=== PATIENT | male | born 1960 ===

== ENCOUNTER 2017-12-23 07:42 | Emergency (ER) | payer OTHER ==
[2017-12-23 08:16] VITALS: BP 143/78; PULSE 79; RESP 20; TEMP 98.7; O2SAT 97; BMI 26.4
--- NOTE | 2017-12-23 08:22 | C.PDOC ---
History Of Present Illness 57-year-old male, presents to the emergency department with complaints of left shoulder pain ongoing for the past six days, that he developed after he hit his shoulder on a roof at work. Pain is persistent in nature, worsened with movement. He denies any head injury, loss of consciousness, numbness/weakness, or any other associated symptoms. No other complaints at this time. Time Seen by Provider: 12/23/17 07:49 Chief Complaint (Nursing): Upper Extremity Problem/Injury History Per: Patient History/Exam Limitations: no limitations Current Symptoms Are (Timing): Still Present Past Medical History Reviewed: Historical Data, Nursing Documentation, Vital Signs Vital Signs: Last Vital Signs Temp 98.7 F 12/23/17 07:48 Pulse 79 12/23/17 07:48 Resp 20 12/23/17 07:48 BP 143/78 12/23/17 07:48 Pulse Ox 97 12/23/17 07:48 Family History: States: No Known Family Hx - Social History Hx Alcohol Use: Yes Hx Substance Use: No - Immunization History Hx Tetanus Toxoid Vaccination: No Hx Influenza Vaccination: No Hx Pneumococcal Vaccination: No Review Of Systems Constitutional: Negative for: Fever Gastrointestinal: Negative for: Vomiting Musculoskeletal: Positive for: Shoulder Pain Neurological: Negative for: Weakness, Numbness Physical Exam - Physical Exam Appears: Non-toxic, No Acute Distress Skin: Warm, Dry, No Rash Head: Atraumatic, Normacephalic Nose: Normal, Flaring Oral Mucosa: Moist Lips: Normal Appearing Neck: Normal ROM Cardiovascular: Rhythm Regular, No Murmur Respiratory: Normal Breath Sounds, No Accessory Muscle Use Gastrointestinal/Abdominal: Soft, No Tenderness, No Guarding, No Rebound Extremity: Tenderness (Proximal humerus, left), No Deformity Neurological/Psych: Oriented x3, Normal Speech, Normal Motor, Normal Sensation, Normal Reflexes ED Course And Treatment O2 Sat by Pulse Oximetry: 97 Pulse Ox Interpretation: Normal (RA) Progress Note: XR shoulder rodered and reviewed. Pt treated with tylenol for pain Reassessment Condition: Improved Disposition Counseled Patient/Family Regarding: Studies Performed, Diagnosis, Need For Followup, Rx Given - Disposition Referrals: Jacobo Sher MD [Staff Provider] - [facility] [Outside] Disposition: HOME/ ROUTINE Disposition Time: 08:35 Additional Instructions: FOLLOW UP WITH ORTHOPEDICS WITHIN 1 WEEK ORTHOPEDIC CLINIC IS EVERY OTHER THURSDAY USE PAIN MEDICATIONS NEEDED RETURN TO EMERGENCY ROOM IF SYMPTOMS WORSEN SEGUIR CON ORTOPEDIA EN MARCO A SEMANA LA CLNICA ORTOPDICA ES CUALQUIER OTRO MIRCOLES UTILICE MEDICAMENTOS PARA EL DOLOR SEGN LO NECESARIO REGRESE AL BEN[place]T DE EMERGENCIA SI LOS SNTOMAS EMPEORAN Prescriptions: Acetaminophen [Tylenol 325mg tab] 650 mg PO Q6 PRN #30 tab PRN Reason: pain/fever Naproxen 375 mg PO BID PRN #20 tablet PRN Reason: pain Instructions: Shoulder Sprain (DC) Forms: [employer] (Yemeni), Work Excuse Print Language: [place] - POA Present On Arrival: Falls Or Trauma - Clinical Impression Clinical Impression: Sprain of left shoulder, Shoulder arthritis - Scribe Statement The provider has reviewed the documentation as recorded by the Scribe (Kay Hopper) Provider Attestation: All medical record entries made by the Scribe were at my direction and personally dictated by me. I have reviewed the chart and agree that the record accurately reflects my personal performance of the history, physical exam, medical decision making, and the department course for this patient. I have also personally directed, reviewed, and agree with the discharge instructions and disposition.
--- NOTE | 2017-12-23 08:26 | RAD ---
Date of service: 12/23/2017 PROCEDURE: Radiographs of the Left Shoulder HISTORY: left shoulder pain after injury COMPARISON: Not available FINDINGS: BONES: Normal. No fracture. JOINTS: Normal glenohumeral articulation. Minimal acromioclavicular degenerative arthritis. SOFT TISSUES: Normal. OTHER FINDINGS: None. IMPRESSION: Minimal acromioclavicular degenerative arthritis. No acute fracture.
== END 2017-12-23 08:36 | disposition home or self-care (01) ==
LOC: C.ER 07:42
DX: S43.402A Unspecified sprain of left shoulder joint, initial encounter (principal); W22.8XXA Striking against or struck by other objects, initial encounter; Y92.89 Other specified places as the place of occurrence of the external cause; Y99.0 Civilian activity done for income or pay; M13.812 Other specified arthritis, left shoulder